=== PATIENT | female | born 1945 | race Caucasian/White ===

== ENCOUNTER 2018-04-15 03:56 | Emergency (ER) | payer MEDICAID ==
[2018-04-15] MEDS ORDERED: ONDANSETRON 4 MG INJ (04:27)
[2018-04-15] MEDS: ONDANSETRON 4 MG INJ IV ×2 (04:32→05:34)
[2018-04-15] MEDS: SOD CHLORIDE 0.9% 500 ML IV (04:34)
[2018-04-15] MEDS: DIAZEPAM 5 MG/ML SYG IV (04:34)
[2018-04-15] MEDS: MECLIZINE 12.5 MG TAB PO ×2 (04:34→05:35)
[2018-04-15] MEDS: HYDROmorphONE 0.5 MG/0.5 ML SYG IV (05:34)
[2018-04-15] MEDS ORDERED: DIPHENHYDRAMINE 50 MG INJ (05:44)
== END 2018-04-15 11:23 | disposition home or self-care (01) ==
LOC: E/R 03:56
DX: J01.00 Acute maxillary sinusitis, unspecified (principal); E11.9 Type 2 diabetes mellitus without complications; I10 Essential (primary) hypertension; Z79.84 Long term (current) use of oral hypoglycemic drugs
CPT/HCPCS: 70450; 71045; 82962; 93005; 96374; 96375; 96376; 99285-25